=== PATIENT | female | born 1975 | race Caucasian/White ===

== ENCOUNTER 2018-04-12 14:40 | Emergency (ER) | payer BC ==
[~2018-04-12] VITALS: Ht 167.6 cm; Wt 84.5 kg
[2018-04-12 14:46] VITALS: Ht 167.6 cm; Wt 84.5 kg
[2018-04-12] MEDS ORDERED: AUGMENTIN 875-11 TAB PO (14:49)
[2018-04-12 17:10] VITALS: BP 162/108
== END 2018-04-12 17:11 | disposition home or self-care (01) ==
LOC: D.ER 14:40
DX: J06.9 Acute upper respiratory infection, unspecified (principal); F17.200 Nicotine dependence, unspecified, uncomplicated